=== PATIENT | female | born 1980 | race African-American/Black ===

== ENCOUNTER 2017-04-15 09:51 | Emergency (ER) | payer OTHER ==
[2017-04-15] MEDS ORDERED: Proparacaine 0.5% Opth 15 ML BOT ONE (10:06)
[2017-04-15] MEDS ORDERED: Fluorescein Opthalmic Strip ONE (10:06)
== END 2017-04-15 10:40 | disposition home or self-care (01) ==
LOC: SCSER 09:51
DX: S05.01XA Injury of conjunctiva and corneal abrasion without foreign body, right eye, initial encounter (principal); X58.XXXA Exposure to other specified factors, initial encounter
CPT/HCPCS: 99282

== ENCOUNTER 2018-07-25 10:37 | Outpatient (CLI) | payer OTHER ==
[~2018-07-25 10:37] MED LIST: Iopamidol 370 76% 100 ML VIAL ONE; Iopamidol 370 76% 50 ML VIAL FS ONE
--- NOTE | 2018-07-25 13:10 | CT ---
CT abdomen and pelvis with IV and oral contrast HISTORY: Abdominal pain. Upper abdomen hernia. FINDINGS: Lung bases are clear. The liver, spleen, kidneys, adrenal glands, and pancreas have a dia l CT appearance. No enlarged lymph nodes or free fluid. No evidence of bowel obstruction or inflammation. Appendix is not inflamed. Urinary bladder is unremarkable. No evidence of abdominal wall hernia. IMPRESSION: No significant abnormalities are demonstrated.
== END 2018-07-25 10:38 | disposition home or self-care (01) ==
LOC: EEVIPCON 10:37 → CT 10:37
PROVIDERS: ATTEND Family Medicine
DX: K46.0 Unspecified abdominal hernia with obstruction, without gangrene (principal)
CPT/HCPCS: 74177; Q9967

== ENCOUNTER 2018-08-22 19:53 | Emergency (ER) | payer OTHER ==
[2018-08-22 20:46] LABS: #Basophils 0.1 thou/uL (0.0-0.2); #Lymphocytes 1.1 thou/uL (1.20-3.40); #Monocytes 0.8 thou/uL (0.11-0.59); #Neutrophils 17.1 thou/uL (1.40-6.50); %Basophils 0.4 % (0.0-1.0); %Eosinophils 0.2 % (0.0-10.0); %Lymphocytes 5.6 % (21.0-51.0); %Monocytes 4.1 % (0.0-10.0); %Neutrophils 89.7 % (42.0-75.0); Hemoglobin 10.6 g/dL (12.0-16.0); Mean Corpuscular HGB CONC 33.5 g/dL (32.0-36.0); Mean Corpuscular Hemoglobin 31.9 pg (27.0-31.0); Mean Platelet Volume 8.9 fL (7.4-10.4); Platelet Count 262 thou/uL (130-400); RBC Distribution Width 11.8 % (11.5-14.5); Red Blood Cell (RBC) Count 3.34 mill/uL (4.20-5.40); White Blood Cell (WBC) Count 19.1 thou/uL (4.8-10.8)
--- NOTE | 2018-08-22 20:46 | RAD ---
Portable frontal chest radiograph: 08/22/2018 COMPARISON: None HISTORY: Sore throat and weakness, chest pain FINDINGS: Lungs are clear. Heart and mediastinal contours appear within normal limits. IMPRESSION: No acute findings.
[2018-08-22 21:00] LABS: ALT (SGPT) 11 U/L (8-55); AST (SGOT) 16 U/L (5-34); Albumin 4.3 g/dL (3.5-5.0); Alkaline Phosphatase 51 U/L (40-150); Anion Gap 14 mmol/L (10-20); BUN (Urea Nitrogen) 8 mg/dL (7.0-18.7); Bilirubin, Total 0.4 mg/dL (0.2-1.2); Calc. Creatinine Clearance 0 mL/min (70-130); Calcium 9.4 mg/dL (7.8-10.44); Carbon Dioxide 23 mmol/L (22-29); Chloride 105 mmol/L (98-107); Estimated GFR-MDRD Greater than 90; Globulin 3.2 g/dL (2.4-3.5); Glucose 125 mg/dL (70-105); Lipase 15 U/L (8-78); Potassium 3.7 mmol/L (3.5-5.1); Protein, Total 7.5 g/dL (6.0-8.3); Sodium 138 mmol/L (136-145)
[2018-08-22] MEDS ORDERED: Aspirin Chewable 81 MG TAB ONE (21:34)
[2018-08-22] MEDS ORDERED: Dexamethasone 4 MG TAB ONE (21:34)
[2018-08-22 22:34] LABS: Bilirubin Negative (Negative); Blood, Urine Moderate (Negative); Clarity Slightly Cloudy (Clear); Glucose, Urine (Dipstick) Negative (Negative); Leukocyte Negative (Negative); Nitrite Negative (Negative); Protein, Urine (Dipstick) Negative (Neg-Trace); pH, Urine 7.5 (5.0-9.0)
[2018-08-22 22:43] LABS: Bacteria/HPF Rare-Few HPF (None Seen); Crystals/HPF 2+ AMORPH PHOS HPF (Negative); RBC/HPF 0-3 HPF (0-3); WBC/HPF 0-3 HPF (0-3)
[2018-08-22 22:44] LABS: Hyaline Casts/LPF NONE SEEN LPF (0-3 Hyaline)
== END 2018-08-22 23:52 | disposition home or self-care (01) ==
LOC: SCSER 19:53
DX: J02.9 Acute pharyngitis, unspecified (principal); R10.13 Epigastric pain; R42 Dizziness and giddiness
CPT/HCPCS: 71045; 80053; 81003; 81015; 83690; 84484; 85025; 87081; 87430; 93005; 96360; 96361; J8540

== ENCOUNTER 2018-09-07 11:57 | Outpatient (CLI) | payer OTHER | END 2018-09-07 11:58 | disposition home or self-care (01) | LOC: EEVIPCON 11:57 → ULT 11:57 | PROVIDERS: ATTEND Family Medicine | DX: R55 Syncope and collapse (principal); I08.1 Rheumatic disorders of both mitral and tricuspid valves | CPT/HCPCS: 93306 ==

== ENCOUNTER 2018-10-24 20:27 | Emergency (ER) | payer OTHER | END 2018-10-24 20:40 | disposition home or self-care (01) | LOC: SCSER 20:27 | DX: I50.9 Heart failure, unspecified (principal); Z79.899 Other long term (current) drug therapy | CPT/HCPCS: 36415; 80053; 84702; 84703; 85025; 85610; 85730; 99284 ==

== ENCOUNTER 2018-10-25 05:52 | Day surgery (SDC) | payer OTHER ==
[2018-10-24 09:42] VITALS: BMI 28.0
[2018-10-25] MEDS ORDERED: Lidocaine 1% (PF) 30 ML VIAL ONE (06:44)
[2018-10-25 07:16] LABS: Cardiac Risk 1.8 (Less than 4.5)
[2018-10-25] MEDS ORDERED: Midazolam HCl 2 mg/2 ml Vial ONE (07:39)
[2018-10-25] MEDS ORDERED: Fentanyl 100 MCG/2 ML VIAL ONE (07:39)
[2018-10-25] MEDS ORDERED: hydrALAZINE 20 MG/ML VIAL ONE (09:03)
[2018-10-25] MEDS ORDERED: Carvedilol 3.125 MG TAB ONE (09:32)
[2018-10-25] MEDS ORDERED: Losartan 25 MG TAB PO SCH (09:45)
[2018-10-25] MEDS ORDERED: Iopamidol 370 76% 100 ML VIAL ONE (12:32)
--- NOTE | 2018-10-25 16:59 | EKG ---
Test Reason : Blood Pressure : / mmHG Vent. Rate : 075 BPM Atrial Rate : 075 BPM P-R Int : 172 ms QRS Dur : 084 ms QT Int : 424 ms P-R-T Axes : 065 038 047 degrees QTc Int : 473 ms Normal sinus rhythm Normal ECG When compared with ECG of 22-AUG-2018 20:17, (Unconfirmed) No significant change was found Confirmed by DR. Fletcher RICHTER ([id number]) on 10/25/2018 4:59:08 PM Referred By: FRANKLIN Confirmed By:DR. Fletcher RICHTER
== END 2018-10-25 13:10 | disposition home or self-care (01) ==
LOC: CCL 05:52
PROVIDERS: ATTEND Internal Medicine Cardiovascular Disease
PROC: B2111ZZ Fluoroscopy of Multiple Coronary Arteries using Low Osmolar Contrast (ICD-10-PCS; principal; 2018-10-25)
PROC: 4A023N7 Measurement of Cardiac Sampling and Pressure, Left Heart, Percutaneous Approach (ICD-10-PCS; principal; 2018-10-25)
DX: I11.0 Hypertensive heart disease with heart failure (principal); I50.20 Unspecified systolic (congestive) heart failure; Z88.1 Allergy status to other antibiotic agents; Z88.0 Allergy status to penicillin; Z88.2 Allergy status to sulfonamides; Z79.899 Other long term (current) drug therapy
CPT/HCPCS: 80061; 93005; 93010; 93458; 99152; C1769; J0360; J1644; J2001; J2250; J3010; Q9967

== ENCOUNTER 2020-09-11 13:57 | Outpatient (CLI) | payer OTHER | END 2020-09-11 13:58 | disposition home or self-care (01) | LOC: BICMAMMO 13:57 | PROVIDERS: ATTEND Advanced Practice Midwife | DX: N63.10 Unspecified lump in the right breast, unspecified quadrant (principal) | CPT/HCPCS: 76999; 77066 ==